=== PATIENT | male | born 1950 | race Caucasian/White ===

== ENCOUNTER 2017-08-31 14:15 | Emergency (ER) | payer BC ==
[2017-08-31] MEDS ORDERED: Calcium CHLORIDE 10% SYRINGE* 1 GM/10 ML ONE (14:17)
[2017-08-31] MEDS ORDERED: EPINEPHrine SYR 0.1 MG/ML* (1:10,000) SYRINGE ONE (14:17)
--- NOTE | 2017-08-31 18:14 | ED ---
Anil Martin Angela, scribed for Rodrigo Moe MD on 08/31/17 at 1422 . Cardiac Resuscitation - HPI Summary HPI Summary: ABC alert overhead at 13:42, ETA 10 minutes. This pt is a 64 y/o male presenting to [facility] via EMS for a cardiac arrest. 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 Pt was found unresponsive inside his car and noticed the pt was in cardiac arrest. EMS transferred the pt to the ED. Upon arrival to the ED at 14:15, EMS had been doing CPR for approximately 45 minutes. EMS administered multiple doses of epi, approximately 5 bicarbs, 1 dose of 300 mg amiodarone, and another dose of 150 amiodarone. Pt was also shocked 3 times with 400+ Joules. Pt was intubated [employer]. - History of Current Complaint Chief Complaint: EDCardiacArrest Stated Complaint: ABC Hx Obtained From: EMS Hx From Patient Unobtainable Due To: Extremis Arrest Witnessed: No Down-time Before Basic Life Support Initiated: Unknown Down-time Before Advanced Life Support Initiated: Unknown - Allergies/Home Medications Home Medications: Home Medications Unobtainable [Unobtainable] 08/31/17 [History Confirmed 08/31/17] - Past Medical History Past Medical History: Unobtainable Due to Extremis - Family History Family History: Unobtainable Due to Extremis - Social History Social History: Unobtainable Due to Extremis - Review of Systems Review of Systems: Unobtainable Due to Extremis Physical Examination - Physical Examination Completion Of Physical Exam Limited Due To: Extremis Resuscitation: Unsuccessful Physical Exam Additional Comments: VITAL SIGNS: Reviewed. GENERAL: Patient is unresponsive. Patient was intubated with combitube since they fell intubation after 3 attempts with an ETT. HEAD AND FACE: No signs of trauma. No ecchymosis, hematomas or skull depressions. EYES: Pupils fixed and dialated MOUTH: Oral mucosa dry NECK: Supple, trachea is midline, no adenopathy, no JVD, no carotid bruit. LUNGS: No breath sounds except when being baged CVS: No cardiac sounds ABDOMEN: Soft and decreased bowel sounds. EXTREMITIES: No edema noted. NEURO: Unresponsive SKIN: cold Cardiac Resus. Course/Dx - Course Course Of Treatment: In the ED, we put the pt on monitor, continued CPR, but the pt had no pulses, no cardiac activity, no blood pressure, and no spontaneous aspirations. The pt came in with active CPR, we continued CPR, we attempted resuscitation with epinephrine and calcium gluconate multiple times and the pt never regained any pulses or cardiac activity. Initially the pt came in with a combi bag saturating at 90%. It seemed to be in a good place however because the pt had no cardiac activity, we continued to do the CPR. After 54 minutes of CPR, we decided to stop CPR and all the health worker providers agreed. Pt was pronounced at 14:24. The pt came on arrival. I discussed pt's case with Dr. Callahan, medical language specialist. He recommends for the [place] [facility] [place] he will figure out if the pt needs a biopsy. - Cardiac Resuscitation Differential Dx/HPI/PQRI: Asystole, Cardiac Rhythm Disturbance, Pulmonary Edema , Pulseless Electrical Activity, Sudden - Diagnoses Provider Diagnoses: on arrival During the Visit The Following Alert/Code Occurred: ABC Alert - overhead at 13: 42, ETA 9 minutes. - Provider Notifications Discussed Care Of Patient With: Charan Callahan Time Discussed With Above Provider: 14:44 Instructed by Provider To: Other - I discussed pt's case with Dr. Callahan, medical language specialist. He recommends for the [place] to [place] [facility] [place] he will figure out if the pt needs a biopsy. - Critical Care Time Critical Care Time: 75-104 min Discharge - Discharge Plan Condition: Disposition: Referrals: No Primary Care Phys,NOPCP [Primary Care Provider] - The documentation as recorded by the Anil richard Angela accurately reflects the service I personally performed and the decisions made by me, Rodrigo Moe MD.
== END 2017-08-31 15:06 | disposition expired ==
LOC: ED 14:15
DX: I46.9 Cardiac arrest, cause unspecified (principal)
CPT/HCPCS: 92950; 99285; J0171